=== PATIENT | male | born 1975 | race Caucasian/White ===

== ENCOUNTER 2024-03-02 03:36 | Emergency (ER) | payer OTHER, SELFPAY ==
[2024-03-02 03:38] VITALS: BP 158/70
[2024-03-02 04:07] LABS: Urine Albumin Trace (Neg - Trace); Urine Bilirubin Negative (Negative); Urine Character Slightly Cloudy (Clear); Urine Color Yellow; Urine Glucose Negative (Negative); Urine Ketone Negative (Negative); Urine Leukocyte Negative (Negative); Urine Nitrite Negative (Negative); Urine Occult Blood 4+ (Negative); Urine Specific Gravity 1.025 (<1.030); Urine Urobilinogen Negative (Neg - 1+)
[2024-03-02] MEDS: NSS 1000 IV (04:08)
[2024-03-02] MEDS: TORADOL 30 MG IV (04:09)
[2024-03-02] MEDS: DILAUDID 1 MG IV ×2 (04:09→04:43)
[2024-03-02] MEDS: ZOFRAN 4 MG IV (04:10)
[2024-03-02 04:11] LABS: Hematocrit 42.5 % (39.0-52.0); Hemoglobin 15.9 g/dL (13.0-18.0); Mean Corp Hgb Conc. 37.4 g/dL (33.0-37.0); Mean Corpuscular Hgb 34.6 pg (27.0-31.0); Mean Corpuscular Volume 92.6 fL (80.0-94.0); Mean Platelet Volume 9.9 fL (7.4-10.4); Nucleated Red Blood Cells % 0 % (-); Platelet Count 238 10^3/uL (130-400); Red Blood Cell Count 4.59 10^6/uL (4.70-6.10); Red Cell Dist. Width 12.6 % (11.5-14.5); White Blood Cell Count 8.4 10^3/uL (4.8-10.8)
[2024-03-02 04:17] VITALS: BP 131/88
[2024-03-02 04:22] VITALS: BP 131/88
[2024-03-02 04:22] LABS: ALT (SGPT) 24 U/L (0-50); AST (SGOT) 23 U/L (17-59); Albumin 4.3 g/dl (3.5-5.0); Alkaline Phosphatase 60 U/L (38-126); Blood Urea Nitrogen 20 mg/dl (9-20); Calcium 9.6 mg/dl (8.4-10.2); Carbon Dioxide 19 mmol/L (22-30); Chloride 107 mmol/L (98-107); Glucose 124 mg/dl (70-99); Potassium 4.2 mmol/L (3.5-5.1); Sodium 142 mmol/L (135-145); Total Bilirubin 0.6 mg/dl (0.2-1.3); Total Protein 6.8 g/dl (6.3-8.2); eGFR > 60.00
--- NOTE | 2024-03-02 04:27 | ED.GENMED ---
History of Present Illness
General
Chief Complaint: Flank Pain
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
Exam Limitations: none
Time Seen by Provider: 03/02/24 04:00
History of Present Illness
History of Present Illness:
49-year-old male history of kidney stone 10 years ago acute onset of right flank and right lower abdominal pain with nausea fairly severe yelling in pain, drinks beer, non-smoker no fever chills
Past History
Past History
ED Past Medical History: Other (Kidney stone)
Social History
Tobacco: Non-smoker
Alcohol: Daily
Drug: None
Living: with family
Review of Systems
Review of Systems
All Other Systems: Not applicable
Constitutional: Denies fever
EENT: Reports no symptoms
Respiratory: Reports no symptoms
Cardiac: Reports no symptoms
ABD/GI: Reports abdominal pain and nausea
: Reports flank pain
Neurological: Reports no symptoms
Endocrine: Reports no symptoms
Phy Exam
Physical Exam
Physical Exam:
Physical Exam
General: 49 male yelling in pain
Neck: No jaundice
Heart: s1/s2 regular rate and rhythm, no murmur. equal radial pulses.
Lungs: no acute respiratory distress. clear bilaterally
Abdomen: Tender in the right mid abdomen and right flank
Neuro: alert and oriented. no focal neurological deficits
Skin: no rash
Psychiatric: well kept. interactive and cooperative
Extremities: no edema.
Course
Orders/Labs/Results
Orders:
Orders
03/02/24 03:53
Urinalysis Reflex To Culture Urgent
Date Specimen was Collected: 03/02/24
Time Specimen was Collected: 03:50
Urine Microscopic Reflex Cult Urgent
Urine Culture Urgent
LEONCIO Source: U
Specimen Description:
Date Specimen was Collected: 03/02/24
Time Specimen was Collected: 03:50
03/02/24 03:54
CBC/With Diff [Complete Blood Count/With Diff] Urgent
CMP [Comprehensive Metabolic Panel] Urgent
Lipase Urgent
Comment: ADD ON
03/02/24 04:00
CT Abd/pel Without Iv Or Oral Urgent
Comment:
Reason For Exam: pain
0.9% Sodium Chloride 1000 ml [Nss] 1,000 ml IV BOLUS
HYDROmorphone [Dilaudid] 1 mg IV NOW STA
Ketorolac [Toradol] 30 mg IV NOW STA
Ondansetron Injectable [Zofran] 4 mg IV NOW STA
03/02/24 04:15
Add On- LAB Urgent
Tests Added?: Lipase
03/02/24 04:37
HYDROmorphone [Dilaudid] 1 mg IV NOW STA
Abnormal Lab Results
03/02/24 03/02/24
03:53 03:54
RBC 4.59 L 10^6/uL
(4.70-6.10)
MCH 34.6 H pg
(27.0-31.0)
MCHC 37.4 H g/dL
(33.0-37.0)
Carbon Dioxide 19 L mmol/L
(22-30)
Glucose 124 H mg/dl
(70-99)
Ur Occult Blood Reflex 4+ A
(Negative)
Urine RBC >100 A /HPF
(0-2)
Urine Bacteria (Reflex) Moderate A
(Negative)
03/02/24 03:54
03/02/24 03:54
Vital Signs
Initial and Last Documented VS:
Initial Vital Signs
Pulse Resp BP Pulse Ox
104 30 158/70 98
03/02/24 03:38 03/02/24 03:38 03/02/24 03:38 03/02/24 03:38
Last Documented Vital Signs
Temp Pulse Resp BP Pulse Ox
98.2 F 76 30 131/88 99
03/02/24 04:17 03/02/24 04:17 03/02/24 03:38 03/02/24 04:17 03/02/24 04:24
MDM/Problems Addressed
Differential Diagnosis Includes:
Renal colic ureteral stone muscle strain biliary colic
MDM/Problems Addressed:
Right flank pain right abdominal pain
Acute Exacerbation and/or Progression of Chronic Illness:
Prior kidney stone
*Radiology
Radiology exam reviewed: radiology read reviewed
*Pulse Oximetry
Patient hypoxic: no
*Critical Care Note
Total Time (30-74mins, 75-104mins- exclusive of procedures): Not Applicable
Update Note
Update Note:
Update, labs noted urine noted CT scan report noted patient appears comfortable now appears to be a candidate for trial of passage
ED Attending Note
-
Portions of this chart may have been created with voice recognition software.� Occasional wrong word or��sound alike� substitutions may have occurred due to the inherent limitations of voice recognition software.
Discharge Plan
Departure
Patient Disposition: Home (Routine Discharge)
Date of Disposition: 03/02/24
Time of Disposition: 05:36
Patient with high blood pressure during this ER visit?: No
Condition: Good
Discharge Problem:
Kidney stone on right side
Instructions: Kidney Stones (DC), Flank Pain (DC), Kidney Stone, Adult ED
Prescriptions:
New
ibuprofen 600 mg tablet
600 mg PO Q6H PRN (Reason: Pain) Qty: 20 0RF
tamsulosin [Flomax] 0.4 mg capsule
0.4 mg PO HS Qty: 10 0RF
oxycodone-acetaminophen [Percocet] 5-325 mg tablet
1 tab PO Q4HPRN PRN (Reason: pain) Qty: 10 0RF
Referrals:
Mike Gonzalez MD [Family Provider] - Next open appointment
Guy Mcdaniel MD [Active] - Next open appointment
Activity Restrictions/Additional Instructions:
Return to the ER if uncontrollable pain fevers or any other concerns
Interventions
Interventions:
ED- Fall Risk Assessment Last Done: 03/02/24 04:24
BX-Ewtjzn-Ppjphcscyt Assessment Last Done: 03/02/24 04:24
ED-Male Genitourinary Assessment Last Done: 03/02/24 04:24
Discharge Date and Time
Print Language: ARMENIAN
[2024-03-02 04:33] LABS: Lipase 297 U/L (23-300)
[2024-03-02 04:52] LABS: Urine Amorphous Seen; Urine Mucus Moderate; Urine Red Blood Cell >100 /HPF (0-2); Urine Squamous Cell >30 /LPF (Few)
[2024-03-02 04:53] LABS: Urine Bacteria Moderate (Negative)
[2024-03-02 05:00] VITALS: BP 124/80
[2024-03-02 06:00] VITALS: BP 127/78
== END 2024-03-02 07:02 | disposition home or self-care (01) ==
LOC: EMR 03:36
PROVIDERS: EMERGENCY PHYSICIAN Emergency Medicine; FAMILY PHYSICIAN Internal Medicine
DX: N20.0 Calculus of kidney (principal); R11.0 Nausea; Z87.442 Personal history of urinary calculi
CPT/HCPCS: 99284; 96374; 96375 ×2; 96361; 96376; 74176; 80053; 81003; 81015; 83690; 85025; 87086

== ENCOUNTER 2025-04-29 10:37 | Emergency (ER) | payer OTHER, SELFPAY ==
[2025-04-29 10:48] VITALS: BP 137/87
--- NOTE | 2025-04-29 12:13 | ED.GENMED ---
History of Present Illness
General
Chief Complaint: Crisis Evaluation
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
Time Seen by Provider: 04/29/25 11:17
History of Present Illness
History of Present Illness:
Patient is a 50-year-old Colombian-speaking male with past medical history of hypertension, hyperlipidemia, depression, who presents to the emergency department for evaluation of worsening depression and anxiety. Patient reports that he has been
dealing with this for the past several months but it became acutely worse over the past 2 months. Patient reports that his depression and anxiety is making it difficult for him to sleep. He reports that he was well educated to had a good job when
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 He reports that he only sleeps 2 or 3 hours at night and is worried about getting into an accident when he is driving during the day. However, he reports that he needs to work to build to
support his family. He reports that he has had increasing financial stressors lately which gives him more anxiety. Patient tried to see his primary care provider 2 months ago and was prescribed escitalopram which he has been taking without
significant improvement in his symptoms. Patient denies any suicidal ideation or homicidal ideation. Patient denies any fevers, chills, chest pain, shortness of breath, abdominal pain, nausea, vomiting. Patient reports that he lives with his
and child.
Past History
Past History
ED Past Medical History: Other (Kidney stone)
Social History
Tobacco: Non-smoker
Alcohol: Daily
Drug: None
Living: with family
Review of Systems
Review of Systems
All Other Systems: ROS reviewed and negative except as documented in HPI and ROS
Constitutional: Reports no symptoms
EENT: Reports no symptoms
Respiratory: Reports no symptoms
Cardiac: Reports no symptoms
ABD/GI: Reports no symptoms
: Reports no symptoms
Musculoskeletal: Reports no symptoms
Skin: Reports no symptoms
Neurological: Reports no symptoms
Endocrine: Reports no symptoms
Hematologic/Lymphatic: Reports no symptoms
Psychiatric: Reports no symptoms
Phy Exam
General Physical Exam
General Presentation: well appearing and no apparent distress
General Skin: warm and dry
General Habitus: normal
General Mental: alert
General Hydration: appears well hydrated
ENT Exam
ENT Exam: EOMI and normocephalic
Eye Exam
Eye Exam: PERRL, cornea clear and conjunctiva normal
Cardiovascular Exam
Cardiovascular Exam: regular rate/rhythm, no edema, no murmur and normal peripheral pulses
Pulmonary Exam
Pulmonary Exam: lungs clear, no respiratory distress, no rales, no crackles, no rhonchi, no stridor, no wheezing and no cough
Neurological Exam
Neurological Exam: alert, oriented x3, no motor deficits and speech normal
Musculoskeletal Exam
Musculoskeletal Exam: full ROM and no edema
Skin Exam
Skin Exam: normal color, warm/dry, no rash and no petechia
Psychiatric Exam
Psychiatric Exam: normal mood/affect
Course
Orders/Labs/Results
Orders:
Orders
04/29/25 12:11
Crisis Consult Urgent
Reason for Consult: anxiety, worsening depression
Vital Signs
Initial and Last Documented VS:
Initial Vital Signs
Temp Pulse Resp BP Pulse Ox
98 F 102 16 137/87 98
04/29/25 10:48 04/29/25 10:48 04/29/25 10:48 04/29/25 10:48 04/29/25 10:48
Last Documented Vital Signs
Temp Pulse Resp BP Pulse Ox
98 F 102 16 137/87 98
04/29/25 10:48 04/29/25 10:48 04/29/25 10:48 04/29/25 10:48 04/29/25 12:15
*Pulse Oximetry
SaO2: 98
Oxygen Mode of Delivery: Room air
Patient hypoxic: no
*Critical Care Note
Total Time (30-74mins, 75-104mins- exclusive of procedures): Not Applicable
Update Note
Update Note:
Patient is a 50-year-old Syrian-speaking male who presents to the emergency department for evaluation of worsening anxiety and depression despite starting escitalopram approximately 2 months ago as prescribed by his PCP. Patient cites issues with
sleep as well as financial stressors as sources of his anxiety and depression. Patient denies any SI, HI, visual or auditory hallucinations. Patient denies any physical complaints at this time. On arrival, patient is slightly hypertensive,
afebrile. On examination, patient is very well-appearing, he is in no acute distress, he has a normal cardiopulmonary exam. Will ask crisis counselors to evaluate the patient and provide him with resources today.
Crisis evaluated the patient and do not feel that he requires inpatient psychiatric hospitalization which I am in agreement with. They provided the patient with multiple outpatient resources. Patient is frustrated that he will not be seen by
psychiatry or started on any new medications today and left prior to written discharge instructions being provided. Patient ambulated out of the emergency department with a steady gait.
ED Attending Note
-
Portions of this chart may have been created with voice recognition software.� Occasional wrong word or��sound alike� substitutions may have occurred due to the inherent limitations of voice recognition software.
Discharge Plan
Departure
Patient Disposition: Home (Routine Discharge)
Date of Disposition: 04/29/25
Time of Disposition: 15:10
Patient with high blood pressure during this ER visit?: Yes
Condition: Good
Covid-19: Not Applicable
Discharge Problem:
Depression, Anxiety
Instructions: Depression, Adult (DC), Anxiety, Adult (DC)
Prescriptions:
No Action
ibuprofen 600 mg tablet
600 mg PO Q6H PRN (Reason: Pain) Qty: 20 0RF
tamsulosin [Flomax] 0.4 mg capsule
0.4 mg PO HS Qty: 10 0RF
oxycodone-acetaminophen [Percocet] 5-325 mg tablet
1 tab PO Q4HPRN PRN (Reason: pain) Qty: 10 0RF
Referrals:
UNKNOWN - PT NOT,INTERVIEWE [Family Provider]
Activity Restrictions/Additional Instructions:
You were seen in the emergency department for evaluation of worsening anxiety and depression. You were seen by our crisis counselors. There is no indication that you need to stay in the hospital or a psychiatric facility today but you were given
resources to help with your anxiety and depression. Please return to the emergency department if you have any thoughts of hurting yourself or others or if you develop any other worsening or concerning symptoms.
Interventions
Interventions:
*Risk Screen - Suicide Last Done: 04/29/25 10:51
*General Assessment Last Done: 04/29/25 10:48
*Neglect/Abuse Screening Last Done: 04/29/25 10:51
*ED- Fall Risk Assessment Last Done: 04/29/25 13:08
*ED COVID-19 Vaccine History Last Done: 04/29/25 13:08
*ED Influenza Vaccine History Last Done: 04/29/25 13:08
*Nursing Disposition Last Done: 04/29/25 15:15
ED-Psychological Assessment Last Done: 04/29/25 13:07
Discharge Date and Time
Discharge Date/Time: 04/29/25 15:30
Print Language: ALB[place]IAN
== END 2025-04-29 15:30 | disposition home or self-care (01) ==
LOC: EMR 10:37
PROVIDERS: EMERGENCY PHYSICIAN Emergency Medicine
DX: F32.A Depression, unspecified (principal); F41.9 Anxiety disorder, unspecified; I10 Essential (primary) hypertension; E78.5 Hyperlipidemia, unspecified; Z87.442 Personal history of urinary calculi
CPT/HCPCS: 99283